=== PATIENT | female | born 1975 | race Caucasian/White ===

== ENCOUNTER 2021-09-02 05:38 | Emergency (ER) | payer OTHER ==
[2021-09-02] MEDS ORDERED: Sodium Chloride 0.9% 10 ML Syringe FLUSH PRN (06:04)
[2021-09-02] MEDS ORDERED: Ketorolac 30 MG/ML SDV IVPUSH ONE (06:04)
[2021-09-02] MEDS ORDERED: Ondansetron 4 MG/2 ML SDV IVPUSH ONE ×2 (06:04→06:31)
[2021-09-02] MEDS ORDERED: Sodium Chloride 0.9% 2.5 ML Syringe FLUSH PRN (06:04)
--- NOTE | 2021-09-02 06:04 | EDM.PDOC ---
<Roger Mak - Last Filed: 09/02/21 05:59> ED HPI GENERAL MEDICAL PROBLEM - General Chief Complaint: Gastrointestinal Problem Stated Complaint: VOMITING, NAUSEA Time Seen by Provider: 09/02/21 05:59 - History of Present Illness INITIAL COMMENTS - FREE TEXT/NARRATIVE: HISTORY AND PHYSICAL: History of present illness: This is a 46-year-old female with no significant past medical history of hypertension, diabetes, liver, lung, kidney problems with no abdominal surgeries or chest surgeries in the past who presents ER today secondary to nausea vomiting abdominal cramping and diarrhea that started approximately midnight. Patient reports that she has had symptoms like this once before from food poisoning. Patient denies any recent fevers, shakes, chills. Patient denies any melena but does have occasional blood in her stool which is not new for her and usually from her hemorrhoids. Patient denies any coffee-ground emesis or hematochezia. Patient denies any dysuria, frequency, urgency. Patient denies any cough cold or rhinorrhea. Patient reports that she has had both of her Covid vaccinations and has not had any Covid exposures or concerns. Patient reports that she does utilize medical marijuana. Patient reports that that is not new for her. Patient reports her last menstrual period started approximately 2 days ago. Patient reports that she has been having no chest pain or shortness of breath. Patient does complain of lower abdominal cramping and pain. Review of systems: As per history of present illness and below otherwise all systems reviewed and negative. Past medical history: As per history of present illness and as reviewed below otherwise noncontributory. Surgical history: As per history of present illness and as reviewed below otherwise noncontributory. Social history: No reported history of drug abuse. Family history: As per history of present illness and as reviewed below otherwise noncontributory. Physical exam: This patient was seen and evaluated during the 2019 SARS-CoV-2 novel coronavirus pandemic period. Community viral transmission is ongoing at time of this encounter and the emergency department is operating under pandemic response p rocedures. Constitutional: Patient is oriented to person, place, and time. Appears well- developed and well-nourished. No distress. HEENT: Moist mucous membranes Head: Normocephalic and atraumatic Eyes: Right eye exhibits no discharge. Left eye exhibits no discharge. No scleral icterus Neck: Normal range of motion. No tracheal deviation present. Cardiovascular: Normal rate and regular rhythm. Pulmonary: Effort normal, no respiratory distress. Abd: Soft, nondistended, no rebound/guarding, no psoas or obturator signs, no tenderness at Mcberney's point, no Romo's sign. Pt does not present with an exam that would be consistent with an acute surgical abdomen at this time. Patient has diffuse mild tenderness throughout her abdomen. Musculoskeletal: Normal range of motion Neurologic: Alert and oriented to person, place and time. Skin: Brea, warm and dry. Psychiatric: Normal mood and affect. Behavior is normal. Judgment and thought content normal. Nursing note and vital signs have been reviewed Diagnostics: [] Therapeutics: [] Assessment and plan: This is a 46-year-old female who presents ER today complaining of diffuse abdominal cramping associated with nausea and vomiting. Patient reports that she has chronic diarrhea and that has not changed her today. Etiology of her symptoms at this time are unclear. During the course of the patient's evaluation for abdominal pain, kidney stone, pancreatitis, cholecystitis, diverticulitis, abdominal aortic aneurysm, myocardial infarction, ischemic bowel, ruptured peptic ulcer, ruptured viscus, UTI,and appendicitis as well as other causes of abdominal pain have been considered. Patient will have CBC, CMP, lipase, urinalysis, urine test, Covid test performed. Patient had a CT scan of her abdomen pelvis performed. Patient be given NSS x2 L and will also be given Zofran 2 mg IV. Patient reports that she is extremely sensitive to Zofran and that all she needs is a small dose for her to have affect. She reports her normal doses her heart races. Definitive disposition and diagnosis as appropriate pending reevaluation and review of above. - Related Data Allergies Allergy/AdvReac Type Severity Reaction Status Date / Time acetaminophen [From Percocet] Allergy Shortness Verified 09/02/21 06:17 of Breath oxycodone [From Percocet] Allergy Shortness Verified 09/02/21 06:17 of Breath Home Meds: Home Meds ALPRAZolam [Alprazolam] 1 tab PO BID PRN 08/22/20 [History] Albuterol [Ventolin HFA] 2 puff INH Q4H PRN 08/22/20 [History] Clobetasol [Clobetasol Propionate 0.05%] 1 applic TOP ASDIRECTED PRN 08/22/20 [History] FLUoxetine HCl [Fluoxetine HCl] 20 mg PO DAILY 08/22/20 [History] Hydrocortisone Acetate [Anusol-Hc] 1 supp RECTAL ASDIRECTED PRN 08/22/20 [History] Past Medical History HEENT History: Reports: None Cardiovascular History: Reports: None Respiratory History: Reports: Other (See Below) Other Respiratory History: SOB with cardio activities, has prescribed inhaler, denies asthma or recurrent bronchitis Gastrointestinal History: Reports: Hemorrhoids, Helicobacter Pylori Genitourinary History: Reports: None [employer] History: Reports: Endometriosis, Musculoskeletal History: Reports: Other (See Below) Other Musculoskeletal History: muscle spasms Neurological History: Reports: None Psychiatric History: Reports: Anxiety, Depression, PTSD Endocrine/Metabolic History: Reports: Other (See Below) Other Endocrine/Metabolic History: hypoglycemia Hematologic History: Reports: None Immunologic History: Reports: None Oncologic (Cancer) History: Reports: None Dermatologic History: Reports: Eczema - Past Surgical History Head Surgeries/Procedures: Reports: None HEENT Surgical History: Reports: None Cardiovascular Surgical History: Reports: None Respiratory Surgical History: Reports: None GI Surgical History: Reports: Colonoscopy, EGD Female Surgical History: Reports: Section, Other (See Below) Other Female Surgeries/Procedures: exploratory laparoscopy Endocrine Surgical History: Reports: None Neurological Surgical History: Reports: None Musculoskeletal Surgical History: Reports: None Oncologic Surgical History: Reports: None Dermatological Surgical History: Reports: None ED ROS GENERAL - Review of Systems Review Of Systems: See Below ED EXAM, GENERAL - Physical Exam Exam: See Below Departure - Departure Disposition: Home, Self-Care 01 Clinical Impression: Colitis - Discharge Information Instructions: Colitis Referrals: PCP,None [Primary Care Provider] - Forms: ED Department Discharge Additional Instructions: You were seen today for nausea vomiting. You likely have a gastroenteritis which is a stomach bug. We recommend you stay hydrated while at home. Please follow-up with your primary care physician if you have any other concerning signs or symptoms. The following information is given to patients seen in the emergency department who are being discharged to home. This information is to outline your options for follow-up care. We provide all patients seen in our emergency department with a follow-up referral. The need for follow-up, as well as the timing and circumstances, are variable depending upon the specifics of your emergency department visit. If you don't have a primary care physician on staff, we will provide you with a referral. We always advise you to contact your personal physician following an emergency department visit to inform them of the circumstance of the visit and for follow-up with them and/or the need for any referrals to a consulting specialist. The emergency department will also refer you to a specialist when appropriate. This referral assures that you have the opportunity for follow-up care with a specialist. All of these measure are taken in an effort to provide you with optimal care, which includes your follow-up. Under all circumstances we always encourage you to contact your private physician who remains a resource for coordinating your care. When calling for follow-up care, please make the office aware that this follow-up is from your recent emergency room visit. If for any reason you are refused follow-up, please contact the [facility] Emergency Department at and asked to speak to the emergency department charge nurse. Please follow up with your primary care physician. If you do not have a primary care physician, see below: [facility] [address] [place] [id number] [id number] <Cornelio Bryan - Last Filed: 09/02/21 09:37> Course - Vital Signs Last Recorded V/S: Last Vital Signs Temp 97.8 F 09/02/21 06:17 Pulse 88 09/02/21 08:00 Resp 20 09/02/21 08:00 BP 114/76 09/02/21 08:00 Pulse Ox 100 09/02/21 08:00 - Orders/Labs/Meds Orders: Active Orders 24 hr Category Date Time Status Sodium Chloride 0.9% [Saline Flush] Med 09/02/21 06:04 Active 10 ml FLUSH ASDIRECTED PRN Sodium Chloride 0.9% [Saline Flush] Med 09/02/21 06:04 Active 2.5 ml FLUSH ASDIRECTED PRN Saline Lock Insert [OM.PC] Stat Oth 09/02/21 06:04 Ordered Medication Orders Sodium Chloride (Sodium Chloride 0.9% 10 Ml Syringe) 10 ml FLUSH ASDIRECTED PRN PRN Reason: Keep Vein Open Last Admin: 09/02/21 06:17 Dose: 10 ml Documented by: ANDRES Sodium Chloride (Sodium Chloride 0.9% 2.5 Ml Syringe) 2.5 ml FLUSH ASDIRECTED PRN PRN Reason: Keep Vein Open Last Admin: 09/02/21 06:17 Dose: 2.5 ml Documented by: ANDRES Labs: Laboratory Tests 09/02/21 09/02/21 09/02/21 Range/Units 06:00 06:00 06:20 WBC 17.57 H (4.0-11.0) K/uL RBC 4.62 (4.30-5.90) M/uL Hgb 14.0 (12.0-16.0) g/dL Hct 40.9 (36.0-46.0) % MCV 88.5 (80.0-98.0) fL MCH 30.3 (27.0-32.0) pg MCHC 34.2 (31.0-37.0) g/dL RDW Std Deviation 41.7 (28.0-62.0) fl RDW Coeff of Caty 13 (11.0-15.0) % Plt Count 339 (150-400) K/uL MPV 10.00 (7.40-12.00) fL Neut % (Auto) 88.5 H (48.0-80.0) % Lymph % (Auto) 7.8 L (16.0-40.0) % [place] % (Auto) 3.4 (0.0-15.0) % Eos % (Auto) 0.2 (0.0-7.0) % Baso % (Auto) 0.1 (0.0-1.5) % Neut # (Auto) 15.6 H (1.4-5.7) K/uL Lymph # (Auto) 1.4 (0.6-2.4) K/uL [place] # (Auto) 0.6 (0.0-0.8) K/uL Eos # (Auto) 0.0 (0.0-0.7) K/uL Baso # (Auto) 0.0 (0.0-0.1) K/uL Nucleated RBC % 0.0 /100WBC Nucleated RBCs # 0 K/uL Sodium 138 (136-145) mmol/L Potassium 3.6 (3.5-5.1) mmol/L Chloride 103 (98-107) mmol/L Carbon Dioxide 20.5 L (21.0-32.0) mmol/L BUN 15 (7.0-18.0) mg/dL Creatinine 0.8 (0.6-1.0) mg/dL Est Cr Clr Drug Dosing 83.54 mL/min Estimated GFR (MDRD) > 60.0 ml/min Glucose 167 H (74-106) mg/dL Calcium 9.2 (8.5-10.1) mg/dL Magnesium 2.0 (1.8-2.4) mg/dL Total Bilirubin 0.6 (0.2-1.0) mg/dL AST 14 L (15-37) IU/L ALT 20 (14-63) IU/L Alkaline Phosphatase 65 (46-116) U/L Total Protein 7.3 (6.4-8.2) g/dL Albumin 3.5 (3.4-5.0) g/dL Globulin 3.8 (2.6-4.0) g/dL Albumin/Globulin Ratio 0.9 (0.9-1.6) Lipase 428 H (73-393) U/L Urine Color Urine Appearance Urine pH (5.0-8.0) Ur Specific [place] (1.001-1.035) Urine Protein (NEGATIVE) mg/dL Urine Glucose (UA) (NEGATIVE) mg/dL Urine Ketones (NEGATIVE) mg/dL Urine Occult Blood (NEGATIVE) Urine Nitrite (NEGATIVE) Urine Bilirubin (NEGATIVE) Urine Urobilinogen (<2.0) EU/dL Ur Leukocyte Esterase (NEGATIVE) Urine HCG, Qual (NEGATIVE) Influenza Type A RNA NEGATIVE (NEGATIVE) Influenza Type B RNA NEGATIVE (NEGATIVE) SARS-CoV-2 RNA (PAULIE) NEGATIVE (NEGATIVE) 09/02/21 09/02/21 Range/Units 08:00 08:00 WBC (4.0-11.0) K/uL RBC (4.30-5.90) M/uL Hgb (12.0-16.0) g/dL Hct (36.0-46.0) % MCV (80.0-98.0) fL MCH (27.0-32.0) pg MCHC (31.0-37.0) g/dL RDW Std Deviation (28.0-62.0) fl RDW Coeff of Caty (11.0-15.0) % Plt Count (150-400) K/uL MPV (7.40-12.00) fL Neut % (Auto) (48.0-80.0) % Lymph % (Auto) (16.0-40.0) % [place] % (Auto) (0.0-15.0) % Eos % (Auto) (0.0-7.0) % Baso % (Auto) (0.0-1.5) % Neut # (Auto) (1.4-5.7) K/uL Lymph # (Auto) (0.6-2.4) K/uL [place] # (Auto) (0.0-0.8) K/uL Eos # (Auto) (0.0-0.7) K/uL Baso # (Auto) (0.0-0.1) K/uL Nucleated RBC % /100WBC Nucleated RBCs # K/uL Sodium (136-145) mmol/L Potassium (3.5-5.1) mmol/L Chloride (98-107) mmol/L Carbon Dioxide (21.0-32.0) mmol/L BUN (7.0-18.0) mg/dL Creatinine (0.6-1.0) mg/dL Est Cr Clr Drug Dosing mL/min Estimated GFR (MDRD) ml/min Glucose (74-106) mg/dL Calcium (8.5-10.1) mg/dL Magnesium (1.8-2.4) mg/dL Total Bilirubin (0.2-1.0) mg/dL AST (15-37) IU/L ALT (14-63) IU/L Alkaline Phosphatase (46-116) U/L Total Protein (6.4-8.2) g/dL Albumin (3.4-5.0) g/dL Globulin (2.6-4.0) g/dL Albumin/Globulin Ratio (0.9-1.6) Lipase (73-393) U/L Urine Color YELLOW Urine Appearance CLEAR Urine pH 8.5 H (5.0-8.0) Ur Specific [place] 1.010 (1.001-1.035) Urine Protein NEGATIVE (NEGATIVE) mg/dL Urine Glucose (UA) NEGATIVE (NEGATIVE) mg/dL Urine Ketones 15 H (NEGATIVE) mg/dL Urine Occult Blood NEGATIVE (NEGATIVE) Urine Nitrite NEGATIVE (NEGATIVE) Urine Bilirubin NEGATIVE (NEGATIVE) Urine Urobilinogen 0.2 (<2.0) EU/dL Ur Leukocyte Esterase NEGATIVE (NEGATIVE) Urine HCG, Qual NEGATIVE (NEGATIVE) Influenza Type A RNA (NEGATIVE) Influenza Type B RNA (NEGATIVE) SARS-CoV-2 RNA (PAULIE) (NEGATIVE) Meds: Medications Generic Name Dose Route Start Last Admin Trade Name Freq PRN Reason Stop Dose Admin Sodium Chloride 10 ml 09/02/21 06:04 09/02/21 06:17 Sodium Chloride 0.9% 10 Ml Syringe FLUSH 10 ml ASDIRECTED PRN Administration Keep Vein Open Sodium Chloride 2.5 ml 09/02/21 06:04 09/02/21 06:17 Sodium Chloride 0.9% 2.5 Ml Syringe FLUSH 2.5 ml ASDIRECTED PRN Administration Keep Vein Open Discontinued Medications Generic Name Dose Route Start Last Admin Trade Name Freq PRN Reason Stop Dose Admin Diphenhydramine HCl 25 mg 09/02/21 07:18 09/02/21 07:22 Diphenhydramine 50 Mg/Ml Sdv IVPUSH 09/02/21 07:19 25 mg ONETIME ONE Administration Haloperidol Lactate 5 mg 09/02/21 09:10 09/02/21 09:17 Haloperidol Lactate 5 Mg/Ml Sdv IM 09/02/21 09:11 5 mg ONETIME ONE Administration Sodium Chloride 1,000 mls @ 999 mls/hr 09/02/21 06:06 09/02/21 06:18 Normal Saline IV 09/02/21 07:06 999 mls/hr .Bolus ONE Administration Iopamidol 100 ml 09/02/21 08:13 09/02/21 08:13 Iopamidol 755 Mg/Ml 500 Ml Multipack Bottle IVPUSH 09/02/21 08:14 100 ml ONETIME STA Administration Ketorolac Tromethamine 15 mg 09/02/21 06:04 09/02/21 06:18 Ketorolac 30 Mg/Ml Sdv IVPUSH 09/02/21 06:05 15 mg ONETIME ONE Administration Metoclopramide HCl 5 mg 09/02/21 07:18 09/02/21 07:22 Metoclopramide 10 Mg/2 Ml Sdv IVPUSH 09/02/21 07:19 5 mg ONETIME ONE Administration Metoclopramide HCl Confirm 09/02/21 07:19 09/02/21 07:21 Metoclopramide 10 Mg/2 Ml Sdv Administered 09/02/21 07:20 Not Given Dose 10 mg .ROUTE .STK-MED ONE Ondansetron HCl 2 mg 09/02/21 06:04 09/02/21 06:17 Ondansetron 4 Mg/2 Ml Sdv IVPUSH 09/02/21 06:05 2 mg ONETIME ONE Administration Ondansetron HCl 2 mg 09/02/21 06:31 09/02/21 06:51 Ondansetron 4 Mg/2 Ml Sdv IVPUSH 09/02/21 06:32 2 mg ONETIME ONE Administration - Re-Assessments/Exams Free Text/Narrative Re-Assessment/Exam: 09/02/21 09:[address] does show colitis likely that his colitis she would not require antibiotics is likely related to what she ate yesterday. Patient vomiting under control patient to be discharged home and follow-up PMD. Departure - Departure Time of Disposition: 09:36 Condition: Good - Discharge Information *PRESCRIPTION DRUG MONITORING PROGRAM REVIEWED*: Not Applicable *COPY OF PRESCRIPTION DRUG MONITORING REPORT IN PATIENT REED: Not Applicable Sepsis Event Note (ED) - Focused Exam Vital Signs: Vital Signs Temp Pulse Resp BP Pulse Ox 09/02/21 08:00 88 20 114/76 100 09/02/21 06:17 97.8 F 67 19 107/71 98
[2021-09-02] MEDS ORDERED: Sodium Chloride 0.9% 1,000 ML IV ONE ×2 (06:06→10:41)
[2021-09-02 06:26] LABS: BLOOD UREA NITROGEN,BUN 15 mg/dL (7.0-18.0); CARBON DIOXIDE,CO2 20.5 mmol/L (21.0-32.0); CHLORIDE,CL 103 mmol/L (98-107); GLUCOSE RANDOM 167 mg/dL (74-106); LIPASE 428 U/L (73-393); POTASSIUM,K 3.6 mmol/L (3.5-5.1); SODIUM,NA 138 mmol/L (136-145)
[2021-09-02 07:08] LABS: CORONAVIRUS COVID-19 NAA NEGATIVE (NEGATIVE); INFLUENZA A NAA NEGATIVE (NEGATIVE); INFLUENZA B NAA NEGATIVE (NEGATIVE)
[2021-09-02] MEDS ORDERED: Metoclopramide 10 MG/2 ML SDV IVPUSH ONE (07:18)
[2021-09-02] MEDS ORDERED: diphenhydrAMINE 50 MG/ML SDV IVPUSH ONE (07:18)
[2021-09-02] MEDS ORDERED: Metoclopramide 10 MG/2 ML SDV ONE (07:19)
[2021-09-02] MEDS ORDERED: Iopamidol 755 MG/ML 500 ML Multipack Bottle IVPUSH STA (08:13)
--- NOTE | 2021-09-02 08:36 | CT ---
INDICATION: Abdominal pain COMPARISON: None TECHNIQUE: CT examination of the abdomen and pelvis was performed following the uneventful intravenous administration of 100 cc of Isovue 370. Thin section axial images were obtained from the lung bases through the pubic symphysis. Oral contrast was not administered. Please note that all CT scans at this facility use dose modulation, iterative reconstruction, and/or weight-based dosing when appropriate to reduce radiation dose to as low as reasonably achievable. FINDINGS: LUNG BASES: The lung bases as visualized appear normal.The heart size is normal at the lung bases. LIVER/BILIARY SYSTEM:The liver is normal in size and configuration. There is no focal mass and there is no intra- or extra hepatic biliary ductal dilatation.The gall bladder appears normal. ADRENALS: Normal KIDNEYS, URETERS and BLADDER:The kidneys appear normal. No visible mass, calculus or hydronephrosis. The ureters and bladder as visualized appear normal. SPLEEN:Normal appearance. PANCREAS: Appears normal. RETROPERITONEUM and MESENTERY: There is no mass, adenopathy or aortic aneurysm. GASTROINTESTINAL SYSTEM: Diffuse colonic thickening consistent with colitis. This affects the cecum, the ascending colon, the left aspect of the transverse colon, the descending colon, the sigmoid and the rectum. A portion of the transverse colon appears to be spared. The appearance is of transmural thickening with surrounding inflammatory change but no pneumatosis, collection or free air. The appendix appears normal. PELVIS: No mass or adenopathy. OSSEOUS STRUCTURES and ABDOMINAL WALL: There is an age-appropriate appearance of the osseous structures.No significant abdominal wall defect. OTHER: No free fluid or free air. IMPRESSION: Colitis involving most of the colon and the rectum. Please note that all CT scans at this facility use dose modulation, iterative reconstruction, and/or weight-based dosing when appropriate to reduce radiation dose to as low as reasonably achievable. Dictated by Declan Rocha MD @ 09/02/2021 8:34:09 AM (Electronically Signed)
[2021-09-02] MEDS ORDERED: Haloperidol Lactate 5 MG/ML SDV IM ONE (09:10)
== END 2021-09-02 11:32 | disposition home or self-care (01) ==
LOC: MW.ED 05:38
DX: K52.9 Noninfective gastroenteritis and colitis, unspecified (principal); Z88.5 Allergy status to narcotic agent; Z20.822 Contact with and (suspected) exposure to COVID-19
CPT/HCPCS: 0240U; 36415; 74177; 80053; 81003; 81025; 83690; 83735; 85025; 96374; 96375; 96376; 99284; J1200; J1630; J1885; J2405; J2765; J7030; Q9967

== ENCOUNTER 2022-03-10 18:28 | Emergency (ER) | payer OTHER | END 2022-03-10 20:12 | disposition home or self-care (01) | LOC: MW.ED 18:28 | DX: F32.A Depression, unspecified (principal); F19.10 Other psychoactive substance abuse, uncomplicated; F41.9 Anxiety disorder, unspecified; F43.10 Post-traumatic stress disorder, unspecified; Z79.899 Other long term (current) drug therapy; Z88.6 Allergy status to analgesic agent | CPT/HCPCS: 99283 ==

== ENCOUNTER 2022-03-13 04:03 | Inpatient (IN) | payer OTHER ==
[2022-03-13] MEDS ORDERED: Lactated Ringers 1,000 ML IV STA ×3 (04:13→06:29)
[2022-03-13] MEDS ORDERED: Ondansetron 4 MG/2 ML SDV IVPUSH STA ×2 (04:13→06:18)
[2022-03-13 04:37] LABS: POTASSIUM,K 3.9 mmol/L (3.5-5.1)
[2022-03-13] MEDS ORDERED: Haloperidol Lactate 5 MG/ML SDV IM STA (05:05)
[2022-03-13] MEDS ORDERED: diphenhydrAMINE 50 MG/ML SDV IVPUSH ONE (05:05)
[2022-03-13] MEDS ORDERED: Iopamidol 755 MG/ML 500 ML Multipack Bottle IVPUSH ONE (05:07)
[2022-03-13] MEDS ORDERED: diphenhydrAMINE 50 MG/ML SDV IVPUSH STA (06:56)
[2022-03-13] MEDS ORDERED: Ondansetron 4 MG/2 ML SDV IVPUSH ONE (08:41)
[2022-03-13] MEDS ORDERED: metroNIDAZOLE/Normal Saline 500 MG in Premix Bag 1 BAG IV ONE (10:43)
[2022-03-13] MEDS ORDERED: methylPREDNISolone Sodium Succinate 125 MG/2 ML SDV IVPUSH ONE (10:43)
[2022-03-13] MEDS ORDERED: Ciprofloxacin in D5W 400 MG in Premix Bag 1 BAG IV STA ×2 (10:43)
[2022-03-13] MEDS ORDERED: Albuterol/Ipratropium 3.0-0.5 MG/3 ML Neb Soln NEB PRN (11:31)
[2022-03-13] MEDS ORDERED: Promethazine 25 MG/ML SDV IM PRN (11:31)
[2022-03-13] MEDS ORDERED: Ondansetron 4 MG/2 ML SDV IVPUSH PRN (11:31)
[2022-03-13] MEDS ORDERED: Lactated Ringers 1,000 ML IV SCH (11:45)
[2022-03-13] MEDS ORDERED: diphenhydrAMINE 50 MG/ML SDV IVPUSH PRN (12:23)
[2022-03-13] MEDS: Lactated Ringers 1,000 ML IV SCH ×2 (13:11→17:45)
[2022-03-13] MEDS ORDERED: HYDROmorphone 1 MG/ML Syringe IVPUSH PRN (14:30)
[2022-03-13] MEDS: metroNIDAZOLE/Normal Saline 500 MG in Premix Bag 1 BAG IV SCH (17:45)
[2022-03-13] MEDS: methylPREDNISolone Sodium Succinate 40 MG/1 ML SDV IVPUSH SCH (21:01)
[2022-03-13] MEDS: Ciprofloxacin in D5W 400 MG in Premix Bag 1 BAG IV SCH ×2 (21:01)
[2022-03-14] MEDS: metroNIDAZOLE/Normal Saline 500 MG in Premix Bag 1 BAG IV SCH ×3 (01:19→17:50)
[2022-03-14] MEDS: Lactated Ringers 1,000 ML IV SCH ×5 (02:56→17:51)
[2022-03-14] MEDS: methylPREDNISolone Sodium Succinate 40 MG/1 ML SDV IVPUSH SCH ×3 (06:16→21:39)
[2022-03-14 06:34] LABS: CARBON DIOXIDE,CO2 22.8 mmol/L (21.0-32.0); POTASSIUM,K 3.7 mmol/L (3.5-5.1)
[2022-03-14] MEDS: Ciprofloxacin in D5W 400 MG in Premix Bag 1 BAG IV SCH ×4 (09:39→21:39)
[2022-03-14] MEDS ORDERED: Magnesium Sulfate/Water 2 GM in Premix Bag 1 BAG IV ONE (10:40)
[2022-03-14] MEDS ORDERED: ALPRAZolam 0.5 MG Tab PO PRN (10:41)
[2022-03-14] MEDS: Acetaminophen 325 MG Tab PO PRN (18:12)
[2022-03-15] MEDS: metroNIDAZOLE/Normal Saline 500 MG in Premix Bag 1 BAG IV SCH ×2 (01:42→10:52)
[2022-03-15] MEDS: Lactated Ringers 1,000 ML IV SCH ×2 (03:43)
[2022-03-15] MEDS: Acetaminophen 325 MG Tab PO PRN (03:43)
[2022-03-15] MEDS: methylPREDNISolone Sodium Succinate 40 MG/1 ML SDV IVPUSH SCH ×2 (06:05→14:58)
[2022-03-15 06:21] LABS: CARBON DIOXIDE,CO2 24.8 mmol/L (21.0-32.0); POTASSIUM,K 4.2 mmol/L (3.5-5.1)
== END 2022-03-15 17:50 | disposition home or self-care (01) | DRG 387 ==
LOC: MW.ED 04:03 → MW.MS 10:42
PROVIDERS: ADMIT Student in an Organized Health Care Education/Training Program; ATTEND Student in an Organized Health Care Education/Training Program
DX: K51.30 Ulcerative (chronic) rectosigmoiditis without complications (principal); F41.9 Anxiety disorder, unspecified; F32.A Depression, unspecified; N94.89 Other specified conditions associated with female genital organs and menstrual cycle; Z20.822 Contact with and (suspected) exposure to COVID-19; Z88.5 Allergy status to narcotic agent; Z88.8 Allergy status to other drugs, medicaments and biological substances; Z98.891 History of uterine scar from previous surgery
CPT/HCPCS: 36415; 74177; 74177-26; 80048; 80053; 83605; 83735; 84100; 85025; 85610; 87040; 87045; 87046; 87324; 87338; 87449; 87899; 93005; 96361; 96374; 96375; 96376; 99285-25; A9270-GY; J0744; J1200; J2405; J2920; J2930; J3475; J3490; J7120; Q9967; U0002

== ENCOUNTER 2023-01-25 08:41 | Day surgery (SDC) | payer OTHER ==
[~2023-01-25 08:41] MED LIST: Albuterol 0.083% 2.5 MG/3 ML Neb Soln NEB PRN; HYDROmorphone 1 MG/ML Syringe IVPUSH PRN; Lactated Ringers 1,000 ML IV SCH; Metoclopramide 10 MG/2 ML SDV IVPUSH PRN; Morphine 2 MG/ML SYRINGE IVPUSH PRN; Naloxone 0.4 MG/ML SDV IVPUSH PRN; Ondansetron 4 MG/2 ML SDV IVPUSH PRN; Sodium Chloride 0.9% 10 ML Syringe FLUSH PRN; Sodium Chloride 0.9% 2.5 ML Syringe FLUSH PRN; Sodium Chloride 0.9% 20 ML SDV IV PRN; ceFAZolin 2 GM in Sodium Chloride 0.9% 50 ML IV ONE; droPERidol 5 MG/2 ML SDV IVPUSH PRN; fentaNYL 50 MCG/ML SDV IVPUSH PRN
[2023-01-25] MEDS ORDERED: Heparin Sodium 100 Units/ML 3 ML Syringe ONE (08:49)
[2023-01-25] MEDS ORDERED: Lidocaine 1% 20 ML MDV ONE (08:49)
[2023-01-25] MEDS ORDERED: Bupivacaine 0.5% 10 ML SDV ONE (08:49)
[2023-01-25] MEDS ORDERED: propofoL 50 ML ONE (09:11)
[2023-01-25] MEDS ORDERED: fentaNYL 250 MCG/5 ML SDV ONE (09:11)
[2023-01-25] MEDS ORDERED: Propofol 200 MG/20 ML SDV ONE (09:11)
[2023-01-25] MEDS ORDERED: Dexamethasone 4 MG/ML 5 ML MDV ONE (10:07)
[2023-01-25] MEDS ORDERED: Ondansetron 4 MG/2 ML SDV ONE (10:07)
[2023-01-25] MEDS ORDERED: ceFAZolin 2 GM Vial ONE (10:09)
== END 2023-01-25 11:37 | disposition home or self-care (01) ==
LOC: MW.SDS 08:41
PROVIDERS: ATTEND Surgery
DX: C18.7 Malignant neoplasm of sigmoid colon (principal); F90.9 Attention-deficit hyperactivity disorder, unspecified type; F41.9 Anxiety disorder, unspecified; J45.909 Unspecified asthma, uncomplicated; F32.A Depression, unspecified; R73.9 Hyperglycemia, unspecified; G47.00 Insomnia, unspecified; F12.90 Cannabis use, unspecified, uncomplicated; F42.9 Obsessive-compulsive disorder, unspecified; F43.10 Post-traumatic stress disorder, unspecified; R63.4 Abnormal weight loss; Z68.1 Body mass index [BMI] 19.9 or less, adult; Z88.5 Allergy status to narcotic agent; Z79.899 Other long term (current) drug therapy; Z98.890 Other specified postprocedural states; Z87.891 Personal history of nicotine dependence
CPT/HCPCS: 36561; 71045; 76000; 82947; C1788; J0131; J0690; J1100; J1642; J2405; J2704; J3010; J3490; J7030; J7120

== ENCOUNTER 2023-03-22 13:56 | Emergency (ER) | payer OTHER ==
[2023-03-22] MEDS ORDERED: Meclizine 25 MG Tab PO ONE (15:18)
[2023-03-22] MEDS ORDERED: Ondansetron 4 MG/2 ML SDV IVPUSH ONE (15:18)
[2023-03-22] MEDS ORDERED: Sodium Chloride 0.9% 1,000 ML IV ONE (15:18)
[2023-03-22 15:55] LABS: BASOPHILS PERCENT AUTO 0.3 % (0.0-1.5); EOSINOPHILS PERCENT AUTO 0.8 % (0.0-7.0); HEMATOCRIT 38.4 % (36.0-46.0); HEMOGLOBIN 12.6 g/dL (12.0-16.0); LYMPHOCYTES ABSOLUTE AUTO 0.8 K/uL (0.6-2.4); LYMPHOCYTES PERCENT AUTO 20.2 % (16.0-40.0); MEAN CORPUSCULAR HGB CONC 32.8 g/dL (31.0-37.0); MEAN CORPUSCULAR VOLUME 91.4 fL (80.0-98.0); MONOCYTES ABSOLUTE AUTO 0.4 K/uL (0.0-0.8); MONOCYTES PERCENT AUTO 10.1 % (0.0-15.0); NEUTROPHILS ABSOLUTE AUTO 2.7 K/uL (1.4-5.7); NEUTROPHILS PERCENT AUTO 68.6 % (48.0-80.0); NRBC ABSOLUTE 0 K/uL; PLATELET COUNT,PLT 200 K/uL (150-400); WHITE BLOOD CELL COUNT,WBC 3.96 K/uL (4.0-11.0)
[2023-03-22 16:30] LABS: A/G RATIO 1.2 (0.9-1.6); BILIRUBIN TOTAL 0.4 mg/dL (0.2-1.0); CALCIUM 9.5 mg/dL (8.5-10.1); CARBON DIOXIDE,CO2 26.1 mmol/L (21.0-32.0); CREATININE 0.8 mg/dL (0.6-1.0); EST CRCL DRUG DOSING (CG) 75.04 mL/min; MAGNESIUM 2.2 mg/dL (1.8-2.4); POTASSIUM,K 3.7 mmol/L (3.5-5.1); PROTEIN TOTAL,TP 7.3 g/dL (6.4-8.2); TSH ULTRASENSITIVE 1.09 uIU/mL (0.36-3.74)
== END 2023-03-22 17:41 | disposition home or self-care (01) ==
LOC: MW.ED 13:56
DX: R42 Dizziness and giddiness (principal); Z88.5 Allergy status to narcotic agent
CPT/HCPCS: 36415; 70450; 80053; 83735; 84443; 84484; 84703; 85025; 93005; 96361; 96374; 99284; A9270; J2405; J7030; 93010

== ENCOUNTER 2024-01-17 10:35 | Day surgery (SDC) | payer BC ==
[~2024-01-17 10:35] MED LIST changes: -Albuterol 0.083% 2.5 MG/3 ML Neb Soln NEB PRN; -HYDROmorphone 1 MG/ML Syringe IVPUSH PRN; -Metoclopramide 10 MG/2 ML SDV IVPUSH PRN; -Morphine 2 MG/ML SYRINGE IVPUSH PRN; -Naloxone 0.4 MG/ML SDV IVPUSH PRN; -Ondansetron 4 MG/2 ML SDV IVPUSH PRN; -ceFAZolin 2 GM in Sodium Chloride 0.9% 50 ML IV ONE; -droPERidol 5 MG/2 ML SDV IVPUSH PRN; -fentaNYL 50 MCG/ML SDV IVPUSH PRN
[2024-01-17] MEDS: Lactated Ringers 1,000 ML IV SCH (11:20)
[2024-01-17] MEDS ORDERED: propofoL 50 ML ONE (12:18)
[2024-01-17] MEDS ORDERED: Ketamine HCL/NACL, ISO-OSM 50 MG/5 ML Syringe ONE (12:36)
[2024-01-17] MEDS ORDERED: fentaNYL 100 MCG/2 ML SDV ONE (12:46)
[2024-01-17] MEDS ORDERED: Phenylephrine HCl In 0.9% NaCl 1 MG/10 ML Syringe ONE (12:53)
[2024-01-17] MEDS ORDERED: Ondansetron 4 MG/2 ML SDV ONE (12:59)
== END 2024-01-17 14:18 | disposition home or self-care (01) ==
LOC: MW.SDS 10:35
PROVIDERS: ATTEND Surgery
DX: Z12.11 Encounter for screening for malignant neoplasm of colon (principal); J45.909 Unspecified asthma, uncomplicated; F41.9 Anxiety disorder, unspecified; Z87.891 Personal history of nicotine dependence; Z79.899 Other long term (current) drug therapy; Z88.8 Allergy status to other drugs, medicaments and biological substances
CPT/HCPCS: 45378; J1642; J2371; J2405; J2704; J3010; J7120; 00811; J3490

== ENCOUNTER 2024-11-20 10:33 | Day surgery (SDC) | payer BC ==
[~2024-11-20 10:33] MED LIST changes: -Lactated Ringers 1,000 ML IV SCH
[2024-11-20] MEDS: Lactated Ringers 1,000 ML IV SCH (11:12)
[2024-11-20] MEDS ORDERED: propofoL 500 MG/50 ML 50 ML ONE (12:25)
[2024-11-20] MEDS ORDERED: Midazolam 1 MG/ML 2 ML SDV ONE (12:26)
[2024-11-20] MEDS ORDERED: Lidocaine 2% 5 ML SDV ONE (12:26)
[2024-11-20] MEDS ORDERED: Propofol 200 MG/20 ML SDV ONE (12:45)
== END 2024-11-20 13:58 | disposition home or self-care (01) ==
LOC: MW.SDS 10:33
PROVIDERS: ATTEND Surgery
DX: K59.00 Constipation, unspecified (principal); K44.9 Diaphragmatic hernia without obstruction or gangrene; J45.909 Unspecified asthma, uncomplicated; F41.9 Anxiety disorder, unspecified; C18.7 Malignant neoplasm of sigmoid colon; Z87.891 Personal history of nicotine dependence; Z79.899 Other long term (current) drug therapy
CPT/HCPCS: 43239; 45378; J2003; J2250; J2704; J7120; 00813